=== PATIENT | male | born 1940 | race Caucasian/White ===

== ENCOUNTER 2017-01-03 20:40 | Emergency (ER) | payer MEDICARE, OTHER ==
[~2017-01-03] VITALS: Ht 177.8 cm; Wt 106.5 kg
[2017-01-03 20:41] VITALS: BP 152/88
[2017-01-03] MEDS ORDERED: plendil PO (21:24)
[2017-01-03] MEDS ORDERED: TAMS-11 PO (21:24)
[2017-01-03] MEDS ORDERED: DULO60CA7 PO (21:24)
[2017-01-03] MEDS ORDERED: IRBE150T49 PO (21:24)
[2017-01-03] MEDS ORDERED: OXYC5CAP4 PO (21:24)
[2017-01-03] MEDS ORDERED: ZOLP10TA PO (21:24)
[2017-01-03] MEDS ORDERED: HYDR-879 PO (21:24)
[2017-01-03] MEDS ORDERED: OMEP20TA62 PO (21:24)
[2017-01-03 21:34] LABS: BLOOD UREA NITROGEN 22 mg/dL (7-18)
[2017-01-03 21:36] LABS: IS PT STATUS REG ER OR PRE ER? YES
== END 2017-01-03 22:58 | disposition home or self-care (01) ==
LOC: ED 22:52
DX: R53.1 Weakness (principal); I10 Essential (primary) hypertension; Z90.49 Acquired absence of other specified parts of digestive tract
CPT/HCPCS: 36415; 71020; 80048; 82040; 83880; 84439; 84443; 84484; 85025; 93005; 99285